=== PATIENT | female | born 1955 | race Asian ===

== ENCOUNTER 2017-02-02 21:54 | Emergency (ER) | payer OTHER ==
[~2017-02-02] VITALS: Ht 152.4 cm; Wt 59.1 kg
[2017-02-02] MEDS ORDERED: CARV6 PO (22:03)
[2017-02-02] MEDS ORDERED: METF500T4 PO (22:03)
[2017-02-02] MEDS ORDERED: SITA50 PO (22:03)
[2017-02-02] MEDS ORDERED: ASPI-556 PO (22:03)
[2017-02-02] MEDS ORDERED: LOSA50TA37 PO (22:03)
[2017-02-02 22:07] LABS: GLUCOSE,POINT OF CARE 122 MG/DL (70-110)
[2017-02-02 23:10] LABS: BASOPHILS % (AUTO) 0.5 % (0.0-2.0); EOSINOPHILS % (AUTO) 7.8 % (1.0-6.0); HEMATOCRIT 41.5 % (36-46); LYMPHOCYTES % (AUTO) 35.6 % (22.0-44.0); MEAN CORPUSCULAR HEMOGLOBIN 28.9 pg (26.0-34.0); MEAN CORPUSCULAR HGB CONC 33.7 G/dL (31.0-37.0); MEAN CORPUSCULAR VOLUME 86 fL (80-100); MONOCYTES # (AUTO) 0.9 K/uL (0.1-1.0); MONOCYTES % (AUTO) 8.3 % (2.0-9.0); NEUTROPHILS # (AUTO) 5.4 K/uL (1.8-7.7); NEUTROPHILS % (AUTO) 47.8 % (40.0-70.0); PLATELET COUNT (AUTO) 371 K/uL (150-450); RED BLOOD CELL COUNT(AUTO) 4.83 MIL/uL (4.00-5.20); RED CELL DISTRIBUTION WIDTH 13.7 % (11.5-14.5); WHITE BLOOD COUNT (AUTO) 11.4 K/uL (4.5-11.0)
[2017-02-02 23:24] LABS: CALCIUM, TOTAL 9.7 mg/dL (8.8-10.5); CREATININE 0.94 mg/dL (0.60-1.30); POTASSIUM 3.7 mmol/L (3.5-5.1)
[2017-02-02 23:30] LABS: ALBUMIN 3.4 g/dL (3.4-5.0); BILIRUBIN,TOTAL 0.5 mg/dL (0.1-1.0); TOTAL PROTEIN, SERUM 7.3 g/dL (6.4-8.2)
[2017-02-02] MEDS ORDERED: PredniSONE 20 MG TABLET PO ONE (23:45)
[2017-02-02] MEDS ORDERED: ValACYclovir HCL 500 MG TABLET PO ONE (23:45)
[2017-02-02] MEDS ORDERED: HYDROCODONE/ACETAMINOPHEN 5-325 MG TABLET PO ONE (23:45)
[2017-02-03] MEDS: ValACYclovir HCL 500 MG TABLET PO ONE ×2 (00:35→00:40)
[2017-02-03 00:36] VITALS: BP 134/76
[2017-02-03] MEDS ORDERED: PredniSONE 20 MG TABLET PO ONE (00:45)
== END 2017-02-03 00:42 | disposition home or self-care (01) ==
LOC: EMS 21:55
DX: B02.9 Zoster without complications (principal); E11.9 Type 2 diabetes mellitus without complications; I10 Essential (primary) hypertension
CPT/HCPCS: 80053; 82962; 83690; 84484; 85025; 93005; 99285; J7512

== ENCOUNTER 2018-05-29 19:09 | Emergency (ER) | payer OTHER ==
[~2018-05-29] VITALS: Ht 152.4 cm; Wt 58.6 kg
[~2018-05-29 19:09] MED LIST: ASPI-556 PO; CARV6 PO; LOSA50TA64 PO; METF-960 PO; SITA50 PO
[2018-05-29 20:11] LABS: BASOPHILS % (AUTO) 1.1 % (0.0-2.0); EOSINOPHILS % (AUTO) 5.4 % (1.0-6.0); HEMATOCRIT 41.3 % (36-46); HEMOGLOBIN 13.8 g/dL (12.0-16.0); LYMPHOCYTES # (AUTO) 2.4 K/uL (1.0-4.8); LYMPHOCYTES % (AUTO) 29.9 % (22.0-44.0); MEAN CORPUSCULAR HEMOGLOBIN 28.4 pg (26.0-34.0); MEAN CORPUSCULAR HGB CONC 33.4 G/dL (31.0-37.0); MEAN CORPUSCULAR VOLUME 85 fL (80-100); MONOCYTES % (AUTO) 12.5 % (2.0-9.0); NEUTROPHILS # (AUTO) 4.1 K/uL (1.8-7.7); NEUTROPHILS % (AUTO) 51.1 % (40.0-70.0); PLATELET COUNT (AUTO) 349 K/uL (150-450); RED BLOOD CELL COUNT(AUTO) 4.85 MIL/uL (4.00-5.20)
[2018-05-29 20:26] LABS: CALCIUM, TOTAL 8.8 mg/dL (8.8-10.5); CREATININE 0.96 mg/dL (0.60-1.30)
[2018-05-29 20:27] LABS: ALBUMIN 3.6 g/dL (3.4-5.0); BILIRUBIN,TOTAL 0.4 mg/dL (0.1-1.0); TOTAL PROTEIN, SERUM 7.1 g/dL (6.4-8.2)
[2018-05-29] MEDS ORDERED: ACETAMINOPHEN 500 MG TABLET PO ONE (21:30)
[2018-05-29] MEDS ORDERED: IBUPROFEN 600 MG TABLET PO ONE (21:30)
[2018-05-29 22:33] VITALS: BP 146/86
== END 2018-05-29 22:43 | disposition home or self-care (01) ==
LOC: EMS 19:10
DX: R51 Headache (principal); I10 Essential (primary) hypertension; E11.9 Type 2 diabetes mellitus without complications; Z79.84 Long term (current) use of oral hypoglycemic drugs
CPT/HCPCS: 70450

== ENCOUNTER 2022-08-10 14:08 | Inpatient (IN) | payer MEDICAID, OTHER ==
[~2022-08-10] VITALS: Ht 152.4 cm; Wt 61.0 kg
[~2022-08-10 14:08] MED LIST changes: +LOSA-382 PO; -LOSA50TA64 PO; +METF-1211 PO; -METF-960 PO
[2022-08-10] MEDS ORDERED: CHOL25TA4 PO (14:16)
[2022-08-10] MEDS ORDERED: METO50 PO (14:16)
[2022-08-10] MEDS ORDERED: CALC250T2 PO (14:16)
[2022-08-10] MEDS ORDERED: LINA5TAB PO (14:16)
[2022-08-10] MEDS ORDERED: CHL25 PO (14:16)
[2022-08-10] MEDS ORDERED: ALLO-97 PO (14:16)
[2022-08-10] MEDS ORDERED: FENO54TA7 PO (14:16)
[2022-08-10] MEDS ORDERED: HYDR25TA84 PO (14:16)
[2022-08-10 14:24] LABS: COVID AG,FIA SOURCE NASAL SWAB
[2022-08-10] MEDS ORDERED: ASPI-1444 PO (14:42)
[2022-08-10] MEDS ORDERED: FENO145T26 PO (14:42)
[2022-08-10] MEDS ORDERED: CALC200T42 PO (14:42)
[2022-08-10] MEDS ORDERED: METO-416 PO (14:42)
[2022-08-10] MEDS ORDERED: SODIUM CHLORIDE 0.9% 500 ML IV ONE (14:45)
[2022-08-10 14:48] LABS: INFLUENZA TYPE A NEGATIVE FOR TYPE A (NEGATIVE); INFLUENZA TYPE B NEGATIVE FOR TYPE B (NEGATIVE)
[2022-08-10 15:24] LABS: EOSINOPHILS % (AUTO) 6.6 % (1.0-6.0); HEMATOCRIT 41.7 % (36-46); HEMOGLOBIN 13.7 g/dL (12.0-16.0); LYMPHOCYTES # (AUTO) 2.2 K/uL (1.0-4.8); LYMPHOCYTES % (AUTO) 31.3 % (22.0-44.0); MEAN CORPUSCULAR HEMOGLOBIN 28.7 pg (26.0-34.0); MEAN CORPUSCULAR HGB CONC 32.9 G/dL (31.0-37.0); MEAN CORPUSCULAR VOLUME 87 fL (80-100); MONOCYTES # (AUTO) 1.1 K/uL (0.1-1.0); NEUTROPHILS # (AUTO) 3.3 K/uL (1.8-7.7); NEUTROPHILS % (AUTO) 46.1 % (40.0-70.0); PLATELET COUNT (AUTO) 334 K/uL (150-450); RED BLOOD CELL COUNT(AUTO) 4.77 MIL/uL (4.00-5.20); RED CELL DISTRIBUTION WIDTH 14.2 % (11.5-14.5)
[2022-08-10 15:33] LABS: CALCIUM, TOTAL 9.9 mg/dL (8.8-10.5); CREATININE 1.86 mg/dL (0.60-1.30); POTASSIUM 3.5 mmol/L (3.5-5.1)
[2022-08-10 15:40] LABS: ALBUMIN 3.5 g/dL (3.4-5.0); BILIRUBIN,TOTAL 0.5 mg/dL (0.1-1.0); TOTAL PROTEIN, SERUM 7.3 g/dL (6.4-8.2)
[2022-08-10 15:41] LABS: LACTIC ACID 1.2 mmol/L (0.4-2.0)
[2022-08-10] MEDS ORDERED: ONDANSETRON HCL 4 MG/2 ML VIAL IVP PRN (18:45)
[2022-08-10] MEDS ORDERED: ACETAMINOPHEN 325 MG TABLET PO PRN (18:45)
[2022-08-10] MEDS: HydrALAZINE HCL 25 MG TABLET PO SCH (21:00)
[2022-08-10 21:10] VITALS: BP 109/60
[2022-08-10] MEDS ORDERED: DEXTROSE 50%-WATER 25 GM/50 ML SYRINGE IVP PRN (22:45)
[2022-08-10] MEDS: HEPARIN SODIUM,PORCINE 5,000 UNITS/ML VIAL SQ SCH (23:06)
[2022-08-11 03:21] VITALS: BP 108/58
[2022-08-11] MEDS: SODIUM CHLORIDE 0.9% 1,000 ML IV SCH ×2 (05:35→21:16)
[2022-08-11 07:18] LABS: BASOPHILS % (AUTO) 0.6 % (0.0-2.0); EOSINOPHILS % (AUTO) 9.4 % (1.0-6.0); HEMATOCRIT 40.3 % (36-46); HEMOGLOBIN 13.6 g/dL (12.0-16.0); LYMPHOCYTES # (AUTO) 2.1 K/uL (1.0-4.8); LYMPHOCYTES % (AUTO) 40.1 % (22.0-44.0); MEAN CORPUSCULAR HEMOGLOBIN 29.3 pg (26.0-34.0); MEAN CORPUSCULAR HGB CONC 33.7 G/dL (31.0-37.0); MEAN CORPUSCULAR VOLUME 87 fL (80-100); MONOCYTES # (AUTO) 0.7 K/uL (0.1-1.0); MONOCYTES % (AUTO) 12.8 % (2.0-9.0); NEUTROPHILS % (AUTO) 37.1 % (40.0-70.0); PLATELET COUNT (AUTO) 335 K/uL (150-450); RED BLOOD CELL COUNT(AUTO) 4.63 MIL/uL (4.00-5.20); RED CELL DISTRIBUTION WIDTH 14.1 % (11.5-14.5)
[2022-08-11 07:31] LABS: CALCIUM, TOTAL 9.7 mg/dL (8.8-10.5); CREATININE 1.25 mg/dL (0.60-1.30); MAGNESIUM 1.7 mg/dL (1.80-2.40); POTASSIUM 3.2 mmol/L (3.5-5.1)
[2022-08-11 07:47] LABS: GLUCOMETER DEV NAME(LOC) 5S.1B; GLUCOSE,POINT OF CARE 146 MG/DL (70-110)
[2022-08-11 08:40] VITALS: BP 105/72
[2022-08-11] MEDS: HydrALAZINE HCL 25 MG TABLET PO SCH ×2 (08:46→21:00)
[2022-08-11] MEDS: FENOFIBRATE 48 MG TABLET PO SCH (08:54)
[2022-08-11] MEDS: ASPIRIN 81 MG DR TABLET PO SCH (08:54)
[2022-08-11] MEDS: ALLOPURINOL 100 MG TABLET PO SCH (08:55)
[2022-08-11] MEDS: CHOLECALCIFEROL (VIT D3) 1,000 UNITS [25 MCG] TABLET PO SCH (08:55)
[2022-08-11] MEDS: HEPARIN SODIUM,PORCINE 5,000 UNITS/ML VIAL SQ SCH ×3 (08:55→23:38)
[2022-08-11 12:15] LABS: APPEARANCE,URINE CLEAR (CLEAR); BILIRUBIN,URINE NEGATIVE (NEGATIVE); GLUCOSE, URINE (UA) NEGATIVE (NEGATIVE); KETONES,URINE NEGATIVE (NEGATIVE); LEUKOCYTE ESTERASE ,URINE TRACE (NEGATIVE); NITRATE,URINE NEGATIVE (NEGATIVE); OCCULT BLOOD,URINE NEGATIVE (NEGATIVE); PROTEIN,URINE NEGATIVE (NEGATIVE); SODIUM,URINE RANDOM 132 mmol/l (20-110); SPECIFIC GRAVITIY, URINE 1.017 (1.003-1.030); UROBILINOGEN,URINE <=1.0 mg/dL (<=1.0)
[2022-08-11 12:35] VITALS: BP 101/60
[2022-08-11 12:53] LABS: BACTERIA,URINE None Seen /HPF (None Seen); RBC,URINE None Seen /HPF (0-2)
[2022-08-11 12:54] LABS: YEAST,URINE None Seen /HPF (None Seen)
[2022-08-11] MEDS ORDERED: MAGNESIUM SULFATE 2 GM/WATER 50 ML IV PRN ×2 (13:00→13:15)
[2022-08-11] MEDS ORDERED: POTASSIUM CHLORIDE 20 MEQ ER TABLET PO PRN (13:00)
[2022-08-11] MEDS ORDERED: MAGNESIUM SULFATE 4 GM/WATER 100 ML IV PRN ×2 (13:00→13:15)
[2022-08-11] MEDS ORDERED: MAGNESIUM OXIDE 400 MG TABLET PO PRN (13:15)
[2022-08-11 13:33] LABS: ALBUMIN 3.6 g/dL (3.4-5.0)
[2022-08-11 16:10] VITALS: BP 130/65
[2022-08-11 19:39] VITALS: BP 121/69
[2022-08-11] MEDS: CALCIUM CIT/VITAMIN D3 200 MG-250 UNITS[6.25MCG] TABLET PO SCH (21:15)
[2022-08-11 21:56] LABS: GLUCOMETER DEV NAME(LOC) 5S.1B; GLUCOSE,POINT OF CARE 135 MG/DL (70-110)
[2022-08-11 21:57] LABS: GLUCOMETER DEV NAME(LOC) 5S.1B; GLUCOSE,POINT OF CARE 116 MG/DL (70-110)
[2022-08-11] MEDS: BENZONATATE 100 MG CAPSULE PO PRN (22:03)
[2022-08-11 23:40] VITALS: BP 124/65
[2022-08-12 04:38] VITALS: BP 118/67
[2022-08-12] MEDS: BENZONATATE 100 MG CAPSULE PO PRN ×2 (06:24→20:56)
[2022-08-12 07:55] VITALS: BP 126/72
[2022-08-12] MEDS: HEPARIN SODIUM,PORCINE 5,000 UNITS/ML VIAL SQ SCH ×2 (08:00→16:00)
[2022-08-12] MEDS: ALLOPURINOL 100 MG TABLET PO SCH (09:00)
[2022-08-12] MEDS: HydrALAZINE HCL 25 MG TABLET PO SCH ×2 (09:25→20:54)
[2022-08-12] MEDS: FENOFIBRATE 48 MG TABLET PO SCH (09:25)
[2022-08-12] MEDS: CALCIUM CIT/VITAMIN D3 200 MG-250 UNITS[6.25MCG] TABLET PO SCH ×2 (09:25→20:59)
[2022-08-12] MEDS: ASPIRIN 81 MG DR TABLET PO SCH (09:26)
[2022-08-12] MEDS: CHOLECALCIFEROL (VIT D3) 1,000 UNITS [25 MCG] TABLET PO SCH (09:26)
[2022-08-12] MEDS: MAGNESIUM OXIDE 400 MG TABLET PO PRN ×3 (09:27→20:56)
[2022-08-12] MEDS ORDERED: GADOTERATE MEGLUMINE 10 MMOL/20 ML VIAL IVP ONE (09:56)
[2022-08-12 11:24] VITALS: BP 125/72
[2022-08-12 15:39] VITALS: BP 147/97
[2022-08-12] MEDS: SODIUM CHLORIDE 0.9% 1,000 ML IV SCH (16:00)
[2022-08-12 19:44] VITALS: BP 132/59
[2022-08-12] MEDS: INSULIN LISPRO 100 UNITS/ML SQ PRN (20:54)
[2022-08-13 00:02] VITALS: BP 128/65
[2022-08-13 04:52] VITALS: BP 130/62
[2022-08-13 07:11] LABS: BASOPHILS % (AUTO) 0.6 % (0.0-2.0); EOSINOPHILS % (AUTO) 7.4 % (1.0-6.0); HEMATOCRIT 39.2 % (36-46); LYMPHOCYTES # (AUTO) 2.7 K/uL (1.0-4.8); LYMPHOCYTES % (AUTO) 44.6 % (22.0-44.0); MEAN CORPUSCULAR HEMOGLOBIN 28.9 pg (26.0-34.0); MEAN CORPUSCULAR HGB CONC 33.3 G/dL (31.0-37.0); MEAN CORPUSCULAR VOLUME 87 fL (80-100); MONOCYTES # (AUTO) 0.5 K/uL (0.1-1.0); NEUTROPHILS # (AUTO) 2.3 K/uL (1.8-7.7); NEUTROPHILS % (AUTO) 38.4 % (40.0-70.0); PLATELET COUNT (AUTO) 351 K/uL (150-450); RED BLOOD CELL COUNT(AUTO) 4.52 MIL/uL (4.00-5.20); RED CELL DISTRIBUTION WIDTH 13.7 % (11.5-14.5)
[2022-08-13 07:28] LABS: ALBUMIN 3.3 g/dL (3.4-5.0); BILIRUBIN,TOTAL 0.5 mg/dL (0.1-1.0); CALCIUM, TOTAL 9.7 mg/dL (8.8-10.5); CREATININE 0.95 mg/dL (0.60-1.30); POTASSIUM 3.7 mmol/L (3.5-5.1); TOTAL PROTEIN, SERUM 6.7 g/dL (6.4-8.2)
[2022-08-13] MEDS: HEPARIN SODIUM,PORCINE 5,000 UNITS/ML VIAL SQ SCH ×3 (08:00→16:00)
[2022-08-13 08:29] VITALS: BP 123/73
[2022-08-13] MEDS: SODIUM CHLORIDE 0.9% 1,000 ML IV SCH (08:39)
[2022-08-13] MEDS: HydrALAZINE HCL 25 MG TABLET PO SCH ×2 (08:40→21:09)
[2022-08-13] MEDS: MAGNESIUM OXIDE 400 MG TABLET PO PRN ×3 (08:40→18:36)
[2022-08-13] MEDS: CHOLECALCIFEROL (VIT D3) 1,000 UNITS [25 MCG] TABLET PO SCH (08:40)
[2022-08-13] MEDS: CALCIUM CIT/VITAMIN D3 200 MG-250 UNITS[6.25MCG] TABLET PO SCH ×2 (08:40→21:09)
[2022-08-13] MEDS: FENOFIBRATE 48 MG TABLET PO SCH (08:41)
[2022-08-13] MEDS: ASPIRIN 81 MG DR TABLET PO SCH (08:41)
[2022-08-13] MEDS: ALLOPURINOL 100 MG TABLET PO SCH ×2 (08:41→08:43)
[2022-08-13] MEDS: BENZONATATE 100 MG CAPSULE PO PRN ×2 (08:45→21:11)
[2022-08-13 12:21] VITALS: BP 136/73
[2022-08-13 16:28] VITALS: BP 128/69
[2022-08-13 19:57] VITALS: BP 139/71
[2022-08-13 23:11] LABS: GLUCOMETER DEV NAME(LOC) 5N.1C; GLUCOSE,POINT OF CARE 136 MG/DL (70-110)
[2022-08-13 23:11] LABS: GLUCOMETER DEV NAME(LOC) 5N.1C; GLUCOSE,POINT OF CARE 140 MG/DL (70-110)
[2022-08-13 23:11] LABS: GLUCOMETER DEV NAME(LOC) 5N.1C; GLUCOSE,POINT OF CARE 97 MG/DL (70-110)
[2022-08-13 23:12] LABS: GLUCOMETER DEV NAME(LOC) 5N.1C; GLUCOSE,POINT OF CARE 159 MG/DL (70-110)
[2022-08-14 00:12] VITALS: BP 132/71
[2022-08-14] MEDS: SODIUM CHLORIDE 0.9% 1,000 ML IV SCH ×2 (01:43→18:51)
[2022-08-14 05:51] VITALS: BP 139/77
[2022-08-14 06:07] LABS: GLUCOMETER DEV NAME(LOC) 5S.1B; GLUCOSE,POINT OF CARE 125 MG/DL (70-110)
[2022-08-14 06:07] LABS: GLUCOMETER DEV NAME(LOC) 5S.1B; GLUCOSE,POINT OF CARE 163 MG/DL (70-110)
[2022-08-14 06:07] LABS: GLUCOMETER DEV NAME(LOC) 5S.1B; GLUCOSE,POINT OF CARE 137 MG/DL (70-110)
[2022-08-14 06:07] LABS: GLUCOMETER DEV NAME(LOC) 5S.1B; GLUCOSE,POINT OF CARE 169 MG/DL (70-110)
[2022-08-14 06:08] LABS: GLUCOMETER DEV NAME(LOC) 5S.1B; GLUCOSE,POINT OF CARE 108 MG/DL (70-110)
[2022-08-14 06:51] LABS: GLUCOMETER DEV NAME(LOC) 5N.1C; GLUCOSE,POINT OF CARE 125 MG/DL (70-110)
[2022-08-14 06:51] LABS: BASOPHILS % (AUTO) 0.8 % (0.0-2.0); EOSINOPHILS % (AUTO) 7.3 % (1.0-6.0); HEMATOCRIT 39.8 % (36-46); HEMOGLOBIN 13.4 g/dL (12.0-16.0); LYMPHOCYTES # (AUTO) 3.1 K/uL (1.0-4.8); MEAN CORPUSCULAR HEMOGLOBIN 29.2 pg (26.0-34.0); MEAN CORPUSCULAR HGB CONC 33.6 G/dL (31.0-37.0); MEAN CORPUSCULAR VOLUME 87 fL (80-100); MONOCYTES # (AUTO) 0.6 K/uL (0.1-1.0); MONOCYTES % (AUTO) 9.5 % (2.0-9.0); NEUTROPHILS # (AUTO) 2.2 K/uL (1.8-7.7); NEUTROPHILS % (AUTO) 34.4 % (40.0-70.0); PLATELET COUNT (AUTO) 382 K/uL (150-450); RED BLOOD CELL COUNT(AUTO) 4.58 MIL/uL (4.00-5.20); RED CELL DISTRIBUTION WIDTH 13.9 % (11.5-14.5)
[2022-08-14 07:14] LABS: ALBUMIN 3.5 g/dL (3.4-5.0); BILIRUBIN,TOTAL 0.6 mg/dL (0.1-1.0); CALCIUM, TOTAL 9.8 mg/dL (8.8-10.5); CREATININE 0.98 mg/dL (0.60-1.30); POTASSIUM 3.7 mmol/L (3.5-5.1)
[2022-08-14 07:50] VITALS: BP 136/72
[2022-08-14] MEDS: HEPARIN SODIUM,PORCINE 5,000 UNITS/ML VIAL SQ SCH ×4 (08:00→16:00)
[2022-08-14] MEDS: FENOFIBRATE 48 MG TABLET PO SCH (09:42)
[2022-08-14] MEDS: ALLOPURINOL 100 MG TABLET PO SCH (09:42)
[2022-08-14] MEDS: ASPIRIN 81 MG DR TABLET PO SCH (09:42)
[2022-08-14] MEDS: CALCIUM CIT/VITAMIN D3 200 MG-250 UNITS[6.25MCG] TABLET PO SCH ×2 (09:42→21:10)
[2022-08-14] MEDS: CHOLECALCIFEROL (VIT D3) 1,000 UNITS [25 MCG] TABLET PO SCH (09:42)
[2022-08-14] MEDS: HydrALAZINE HCL 25 MG TABLET PO SCH ×2 (09:42→21:10)
[2022-08-14 11:56] LABS: COVID AG,FIA SOURCE NASAL SWAB
[2022-08-14] MEDS ORDERED: IOTHALAMATE MEGLUMINE 600 MG/ML 50 ML VIAL IVP ONE (12:05)
[2022-08-14 13:18] VITALS: BP 143/86
[2022-08-14] MEDS ORDERED: SODIUM CHLORIDE 0.9% 1,000 ML ONE (13:59)
[2022-08-14] MEDS ORDERED: FentaNYL CITRATE PF 100 MCG/2 ML VIAL IVP PRN (15:15)
[2022-08-14] MEDS ORDERED: MEPERIDINE-PF 25 MG/ML VIAL IVP PRN (15:15)
[2022-08-14] MEDS ORDERED: HYDROmorphone HCL 2 MG/ML SYRINGE IVP PRN (15:15)
[2022-08-14 16:36] VITALS: BP 133/76
[2022-08-14] MEDS: INSULIN LISPRO 100 UNITS/ML SQ PRN (18:21)
[2022-08-14 19:56] VITALS: BP 146/84
[2022-08-14] MEDS: OXYGEN THERAPY IH SCH (20:00)
[2022-08-14 23:06] LABS: GLUCOMETER DEV NAME(LOC) 5S.1B; GLUCOSE,POINT OF CARE 146 MG/DL (70-110)
[2022-08-15] VITALS (7 sets, daily range): BP systolic 119–142; BP diastolic 64–79
[2022-08-15] MEDS ORDERED: DEXAMETHASONE SOD PHOS 4 MG/ML VIAL IVP ONE (05:43)
[2022-08-15] MEDS ORDERED: 0.9% SODIUM CHLORIDE 10 ML VIAL IVP ONE (05:43)
[2022-08-15] MEDS ORDERED: FentaNYL CITRATE PF 100 MCG/2 ML VIAL IVP ONE (05:43)
[2022-08-15] MEDS ORDERED: MIDAZOLAM HCL 2 MG/2 ML VIAL IVP ONE (05:43)
[2022-08-15] MEDS ORDERED: ONDANSETRON HCL 4 MG/2 ML VIAL IVP ONE (05:43)
[2022-08-15] MEDS ORDERED: ROCURONIUM BROMIDE 10 MG/ML 5 ML VIAL IVP ONE (05:43)
[2022-08-15] MEDS ORDERED: LIDOCAINE/PF 2% 5 ML VIAL IM ONE (05:43)
[2022-08-15] MEDS ORDERED: PROPOFOL 1% 20 ML VIAL IVP ONE (05:43)
[2022-08-15 06:15] LABS: BASOPHILS % (AUTO) 0.6 % (0.0-2.0); EOSINOPHILS % (AUTO) 0 % (1.0-6.0); HEMATOCRIT 39.6 % (36-46); HEMOGLOBIN 13.7 g/dL (12.0-16.0); LYMPHOCYTES # (AUTO) 1.9 K/uL (1.0-4.8); LYMPHOCYTES % (AUTO) 20.5 % (22.0-44.0); MEAN CORPUSCULAR HEMOGLOBIN 29.6 pg (26.0-34.0); MEAN CORPUSCULAR HGB CONC 34.5 G/dL (31.0-37.0); MEAN CORPUSCULAR VOLUME 86 fL (80-100); MONOCYTES # (AUTO) 0.6 K/uL (0.1-1.0); MONOCYTES % (AUTO) 6.5 % (2.0-9.0); NEUTROPHILS # (AUTO) 6.5 K/uL (1.8-7.7); NEUTROPHILS % (AUTO) 72.4 % (40.0-70.0); PLATELET COUNT (AUTO) 375 K/uL (150-450); RED BLOOD CELL COUNT(AUTO) 4.62 MIL/uL (4.00-5.20); RED CELL DISTRIBUTION WIDTH 13.7 % (11.5-14.5)
[2022-08-15 06:58] LABS: ALBUMIN 3.3 g/dL (3.4-5.0); CREATININE 0.97 mg/dL (0.60-1.30); POTASSIUM 4.1 mmol/L (3.5-5.1); TOTAL PROTEIN, SERUM 7.4 g/dL (6.4-8.2)
[2022-08-15] MEDS: HEPARIN SODIUM,PORCINE 5,000 UNITS/ML VIAL SQ SCH ×3 (08:00→15:47)
[2022-08-15] MEDS: OXYGEN THERAPY IH SCH (08:00)
[2022-08-15] MEDS: CHOLECALCIFEROL (VIT D3) 1,000 UNITS [25 MCG] TABLET PO SCH (08:35)
[2022-08-15] MEDS: FENOFIBRATE 48 MG TABLET PO SCH (08:36)
[2022-08-15] MEDS: HydrALAZINE HCL 25 MG TABLET PO SCH ×2 (08:36→21:39)
[2022-08-15] MEDS: CALCIUM CIT/VITAMIN D3 200 MG-250 UNITS[6.25MCG] TABLET PO SCH ×2 (08:36→21:38)
[2022-08-15] MEDS: ALLOPURINOL 100 MG TABLET PO SCH (08:37)
[2022-08-15] MEDS: ASPIRIN 81 MG DR TABLET PO SCH (08:37)
[2022-08-15 10:26] LABS: GLUCOMETER DEV NAME(LOC) 5S.1B; GLUCOSE,POINT OF CARE 128 MG/DL (70-110)
[2022-08-15 11:51] LABS: GLUCOMETER DEV NAME(LOC) 5S.1B; GLUCOSE,POINT OF CARE 111 MG/DL (70-110)
[2022-08-15] MEDS: SODIUM CHLORIDE 0.9% 1,000 ML IV SCH (12:03)
[2022-08-15 18:41] LABS: GLUCOMETER DEV NAME(LOC) 5S.1B; GLUCOSE,POINT OF CARE 123 MG/DL (70-110)
[2022-08-15 23:31] LABS: GLUCOMETER DEV NAME(LOC) 5S.1B; GLUCOSE,POINT OF CARE 108 MG/DL (70-110)
[2022-08-16 03:36] VITALS: BP 115/64
[2022-08-16] MEDS: SODIUM CHLORIDE 0.9% 1,000 ML IV SCH ×2 (04:37→19:50)
[2022-08-16 06:49] LABS: BASOPHILS % (AUTO) 0.4 % (0.0-2.0); EOSINOPHILS % (AUTO) 2.7 % (1.0-6.0); HEMATOCRIT 37.9 % (36-46); HEMOGLOBIN 12.6 g/dL (12.0-16.0); LYMPHOCYTES # (AUTO) 2.9 K/uL (1.0-4.8); LYMPHOCYTES % (AUTO) 40.7 % (22.0-44.0); MEAN CORPUSCULAR HEMOGLOBIN 28.8 pg (26.0-34.0); MEAN CORPUSCULAR HGB CONC 33.2 G/dL (31.0-37.0); MEAN CORPUSCULAR VOLUME 87 fL (80-100); MONOCYTES # (AUTO) 0.6 K/uL (0.1-1.0); MONOCYTES % (AUTO) 7.9 % (2.0-9.0); NEUTROPHILS # (AUTO) 3.5 K/uL (1.8-7.7); NEUTROPHILS % (AUTO) 48.3 % (40.0-70.0); PLATELET COUNT (AUTO) 394 K/uL (150-450); RED BLOOD CELL COUNT(AUTO) 4.37 MIL/uL (4.00-5.20); RED CELL DISTRIBUTION WIDTH 13.9 % (11.5-14.5)
[2022-08-16 07:07] LABS: ALBUMIN 3.2 g/dL (3.4-5.0); CALCIUM, TOTAL 9.2 mg/dL (8.8-10.5); CREATININE 0.96 mg/dL (0.60-1.30); POTASSIUM 3.4 mmol/L (3.5-5.1); TOTAL PROTEIN, SERUM 6.3 g/dL (6.4-8.2)
[2022-08-16 07:16] LABS: GLUCOMETER DEV NAME(LOC) 5N.1C; GLUCOSE,POINT OF CARE 95 MG/DL (70-110)
[2022-08-16 07:48] VITALS: BP 129/69
[2022-08-16] MEDS: OXYGEN THERAPY IH SCH ×4 (08:00→20:27)
[2022-08-16] MEDS ORDERED: RINGERS SOLUTION,LACTATED 1,000 ML IV ONE (08:00)
[2022-08-16] MEDS: HEPARIN SODIUM,PORCINE 5,000 UNITS/ML VIAL SQ SCH ×4 (08:00→23:24)
[2022-08-16] MEDS: ASPIRIN 81 MG DR TABLET PO SCH (09:00)
[2022-08-16] MEDS: FENOFIBRATE 48 MG TABLET PO SCH (09:00)
[2022-08-16] MEDS: ALLOPURINOL 100 MG TABLET PO SCH (09:00)
[2022-08-16] MEDS: CHOLECALCIFEROL (VIT D3) 1,000 UNITS [25 MCG] TABLET PO SCH (09:00)
[2022-08-16] MEDS: CALCIUM CIT/VITAMIN D3 200 MG-250 UNITS[6.25MCG] TABLET PO SCH ×2 (09:00→20:39)
[2022-08-16] MEDS: HydrALAZINE HCL 25 MG TABLET PO SCH ×2 (09:00→20:39)
[2022-08-16] MEDS: POTASSIUM CHL 10 MEQ/WATER 50 ML IV PRN ×3 (10:18→13:15)
[2022-08-16 11:00] VITALS: BP 140/66
[2022-08-16] MEDS ORDERED: SODIUM CHLORIDE 0.9% 1,000 ML ONE ×2 (13:45→13:56)
[2022-08-16] MEDS ORDERED: BUPIVACAINE 0.25%/EPI 1:200,000/PF 10 ML VIAL ONE (13:45)
[2022-08-16 14:06] LABS: GLUCOMETER DEV NAME(LOC) 5S.1B; GLUCOSE,POINT OF CARE 83 MG/DL (70-110)
[2022-08-16] MEDS ORDERED: BUPIVACAINE 0.25%/EPI 1:200,000/PF 30 ML VIAL PERC ONE (14:14)
[2022-08-16] MEDS ORDERED: MEPERIDINE-PF 25 MG/ML VIAL IVP PRN (15:45)
[2022-08-16] MEDS ORDERED: HYDROmorphone HCL 2 MG/ML SYRINGE IVP PRN (15:45)
[2022-08-16] MEDS ORDERED: FentaNYL CITRATE PF 100 MCG/2 ML VIAL IVP PRN (15:45)
[2022-08-16 17:25] VITALS: BP 116/72
[2022-08-16 17:46] LABS: GLUCOMETER DEV NAME(LOC) 5S.1B; GLUCOSE,POINT OF CARE 98 MG/DL (70-110)
[2022-08-16 20:07] VITALS: BP 134/74
[2022-08-17 00:49] VITALS: BP 124/73
[2022-08-17 05:34] VITALS: BP 135/71
[2022-08-17] MEDS ORDERED: 0.9% SODIUM CHLORIDE 10 ML VIAL IVP ONE (06:54)
[2022-08-17] MEDS ORDERED: LIDOCAINE/PF 2% 5 ML VIAL IM ONE (06:54)
[2022-08-17] MEDS ORDERED: FentaNYL CITRATE PF 100 MCG/2 ML VIAL IVP ONE (06:54)
[2022-08-17] MEDS ORDERED: DEXAMETHASONE SOD PHOS 4 MG/ML VIAL IVP ONE (06:54)
[2022-08-17] MEDS ORDERED: ROCURONIUM BROMIDE 10 MG/ML 5 ML VIAL IVP ONE (06:54)
[2022-08-17] MEDS ORDERED: ONDANSETRON HCL 4 MG/2 ML VIAL IVP ONE (06:54)
[2022-08-17] MEDS ORDERED: MIDAZOLAM HCL 2 MG/2 ML VIAL IVP ONE (06:54)
[2022-08-17] MEDS ORDERED: PROPOFOL 1% 20 ML VIAL IVP ONE (06:54)
[2022-08-17 07:01] LABS: BASOPHILS % (AUTO) 0.2 % (0.0-2.0); EOSINOPHILS % (AUTO) 0 % (1.0-6.0); HEMOGLOBIN 12.5 g/dL (12.0-16.0); LYMPHOCYTES # (AUTO) 2.1 K/uL (1.0-4.8); LYMPHOCYTES % (AUTO) 15.2 % (22.0-44.0); MEAN CORPUSCULAR HEMOGLOBIN 29.2 pg (26.0-34.0); MEAN CORPUSCULAR HGB CONC 32.9 G/dL (31.0-37.0); MEAN CORPUSCULAR VOLUME 89 fL (80-100); NEUTROPHILS # (AUTO) 10.7 K/uL (1.8-7.7); NEUTROPHILS % (AUTO) 77.6 % (40.0-70.0); PLATELET COUNT (AUTO) 383 K/uL (150-450); RED BLOOD CELL COUNT(AUTO) 4.28 MIL/uL (4.00-5.20)
[2022-08-17 07:17] LABS: ALBUMIN 3.2 g/dL (3.4-5.0); BILIRUBIN,TOTAL 0.9 mg/dL (0.1-1.0); CALCIUM, TOTAL 9.6 mg/dL (8.8-10.5); CREATININE 1.12 mg/dL (0.60-1.30); POTASSIUM 3.9 mmol/L (3.5-5.1); TOTAL PROTEIN, SERUM 6.8 g/dL (6.4-8.2)
[2022-08-17 08:00] VITALS: BP 158/73
[2022-08-17] MEDS: OXYGEN THERAPY IH SCH ×4 (08:00→19:41)
[2022-08-17] MEDS: HEPARIN SODIUM,PORCINE 5,000 UNITS/ML VIAL SQ SCH ×3 (08:00→23:37)
[2022-08-17] MEDS: ALLOPURINOL 100 MG TABLET PO SCH (09:00)
[2022-08-17] MEDS: CALCIUM CIT/VITAMIN D3 200 MG-250 UNITS[6.25MCG] TABLET PO SCH ×2 (09:35→20:26)
[2022-08-17] MEDS: ASPIRIN 81 MG DR TABLET PO SCH (09:35)
[2022-08-17] MEDS: CHOLECALCIFEROL (VIT D3) 1,000 UNITS [25 MCG] TABLET PO SCH (09:35)
[2022-08-17] MEDS: FENOFIBRATE 48 MG TABLET PO SCH (09:35)
[2022-08-17] MEDS: HydrALAZINE HCL 25 MG TABLET PO SCH ×2 (09:35→21:00)
[2022-08-17 12:00] VITALS: BP 104/58
[2022-08-17] MEDS: SODIUM CHLORIDE 0.9% 1,000 ML IV SCH ×2 (12:30→18:30)
[2022-08-17 16:00] VITALS: BP 116/59
[2022-08-17 18:26] LABS: GLUCOMETER DEV NAME(LOC) 5N.1C; GLUCOSE,POINT OF CARE 111 MG/DL (70-110)
[2022-08-17 19:56] LABS: GLUCOMETER DEV NAME(LOC) 5N.1C; GLUCOSE,POINT OF CARE 116 MG/DL (70-110)
[2022-08-17 20:49] VITALS: BP 134/65
[2022-08-17] MEDS ORDERED: BENZ100C68 PO ×2 (21:54→23:58)
[2022-08-18 01:28] VITALS: BP 122/61
[2022-08-18 05:10] VITALS: BP 126/79
[2022-08-18 08:00] VITALS: BP 126/79
[2022-08-18] MEDS: OXYGEN THERAPY IH SCH ×2 (08:00)
[2022-08-18] MEDS: CALCIUM CIT/VITAMIN D3 200 MG-250 UNITS[6.25MCG] TABLET PO SCH (09:00)
[2022-08-18] MEDS: FENOFIBRATE 48 MG TABLET PO SCH (09:00)
[2022-08-18] MEDS: HEPARIN SODIUM,PORCINE 5,000 UNITS/ML VIAL SQ SCH (09:26)
[2022-08-18] MEDS: ASPIRIN 81 MG DR TABLET PO SCH (09:27)
[2022-08-18] MEDS: HydrALAZINE HCL 25 MG TABLET PO SCH (09:27)
[2022-08-18] MEDS: CHOLECALCIFEROL (VIT D3) 1,000 UNITS [25 MCG] TABLET PO SCH (09:27)
[2022-08-18] MEDS: ALLOPURINOL 100 MG TABLET PO SCH (09:27)
[2022-08-18] MEDS ORDERED: BENZ-227 PO (10:01)
== END 2022-08-18 11:00 | disposition home or self-care (01) | DRG 263 ==
LOC: EMS 14:14 → 5N 20:37
PROVIDERS: ADMIT Internal Medicine; ATTEND Internal Medicine
PROC: BF101ZZ Fluoroscopy of Bile Ducts using Low Osmolar Contrast (ICD-10-PCS; 2022-08-14)
PROC: 0FC98ZZ Extirpation of Matter from Common Bile Duct, Via Natural or Artificial Opening Endoscopic (ICD-10-PCS; principal; 2022-08-14 14:25)
PROC: 0FT44ZZ Resection of Gallbladder, Percutaneous Endoscopic Approach (ICD-10-PCS; 2022-08-16)
DX: K80.60 Calculus of gallbladder and bile duct with cholecystitis, unspecified, without obstruction (principal); U07.1 COVID-19; N17.9 Acute kidney failure, unspecified; I95.9 Hypotension, unspecified; E11.9 Type 2 diabetes mellitus without complications; I10 Essential (primary) hypertension; E87.6 Hypokalemia; E78.00 Pure hypercholesterolemia, unspecified; E78.5 Hyperlipidemia, unspecified; Z78.9 Other specified health status; Z86.73 Personal history of transient ischemic attack (TIA), and cerebral infarction without residual deficits; Z79.82 Long term (current) use of aspirin; Z79.899 Other long term (current) drug therapy; Z90.49 Acquired absence of other specified parts of digestive tract; R79.89 Other specified abnormal findings of blood chemistry
CPT/HCPCS: 71045; 74183; 76700; 80048; 80053; 81001; 82040; 82570; 82962; 83605; 83690; 83735; 83880; 84132; 84300; 84484; 85025; 85379; 87040; 87804; 93005; 99291; J0690; J1100; J1644; J2250; J2405; J2704; J3010; J3480; J3490; J7030; J7040; J7120; Q9961; Q9967; 36415-L1; 36415-TC; Z7610